=== PATIENT | male | born 1950 | race Caucasian/White ===

== ENCOUNTER 2016-11-20 19:28 | Emergency (ER) | payer MEDICAID ==
[2016-11-20 19:46] VITALS: BP 148/88; PULSE 78; RESP 16; TEMP 98.2; O2SAT 97
--- NOTE | 2016-11-20 20:07 | UCPHY ---
H & P Time Seen by Provider: 11/20/16 19:36 Patient Type: New HPI/ROS: This patient complains of pain to the neck extends to the right upper interscapular region and is positional. He describes the nature the pain as a deep ache and explains that he cannot extend his neck due to severe worsening the pain when he attempts to do so he has some relief of the pain when he flexes forward. There is associated intermittent right arm paresthesias. He has partial relief from [id number] anti-inflammatories such as ibuprofen and aspirin. He also feels some improvement when lying down compared to standing up. No other exacerbating or alleviating factors are noted. Current intensity with neck held in partial flexion is 5/10. ROS: No recent trauma. He reports having had similar episodes of pain the last 2 years prior to this year starting in September and he has had relief from massage therapy in previous years but had massage therapy dysuria without significant improvement and came in for evaluation. Over the past 2 days he reports associated waves of nausea with his pain. He also has mild anorexia. Neuro: No focal weakness. No bowel or bladder incontinence musculoskeletal: No low back pain : No urinary symptoms. GI: No belly pain. 10 point ROS is otherwise negative. Past Medical/Surgical History: Intermittent neck pain for the past 3 years Social History: No alcohol. No recreational drugs. Smoking Status: Never smoked Physical Exam: Physical Exam Vital signs are normal. General: No acute distress HEENT: Atraumatic. Eyes: Pupils equal and react to light. Extraocular motions are intact. Neck: Patient has midline tenderness at approximately C4. This extends into the right trapezius and the region just medial to the upper right scapula. He has limited range of motion in extension of the neck due to pain and is holding his neck in partial flexion due to this. Patient has some decrease in pain with lateral flexion away from the affected side Lungs: No respiratory distress. Cardiac: Brisk capillary refill is intact throughout. Pulses are 2+ and symmetric in the affected extremity. Skin: No rash or pallor. Neuro: He is alert and he maintains normal light touch sensation bilateral upper extremities and 5/5 strength bilateral upper extremities. He has diminished triceps reflex on the right side compared to the left otherwise DTRs are intact and brachioradialis, biceps, patellar and Achilles bilaterally. Initial differential diagnosis: Cervical radiculopathy from herniated disc, rule out bony lesion, spinal tumor, spinal abscess Constitutional: Initial Vital Signs Temperature (C) 36.8 C 11/20/16 19:42 Heart Rate 78 11/20/16 19:42 Respiratory Rate 16 11/20/16 19:42 Blood Pressure 148/88 H 11/20/16 19:42 O2 Sat (%) 97 11/20/16 19:42 O2 Delivery Mode Room Air Allergies/Adverse Reactions: Penicillins Allergy (Verified 06/22/12 13:56) Home Medications: Medication Instructions Recorded Aspirin 11/20/16 Hydrocodone/APAP 5/325 [[place] 1 - 2 tab PO Q4PRN PRN #15 tab 11/20/16 5/325 (*)] IBUPROFEN 11/20/16 Methocarbamol [Robaxin 750 mg (*)] 750 - 1,500 mg PO QID PRN #30 tab 11/20/16 Ondansetron Odt [Zofran Odt] 4 - 8 mg PO Q4PRN PRN #4 tab 11/20/16 predniSONE 60 mg PO DAILY #25 tab 11/20/16 MDM/Departure - MDM Diagnostics: Cervical x-rays: Loss of lordosis and multilevel degenerative disc disease by my interpretation. Medications Given: Discontinued Medications Ondansetron HCl (Zofran Odt) 8 mg PO EDNOW ONE Stop: 11/20/16 20:31 Last Admin: 11/20/16 20:37 Dose: 8 mg ED Course/Re-evaluation: Patient is given Zofran here for nausea. He will take prednisone analgesics at home after a drive home. Discussion: Patient here with neck pain that is consistent with cervical radiculopathy with paresthesias but no heart Neuro losses except perhaps a diminished triceps reflex on the right side. Counseled regarding this. He will follow up with Dae Guevara of Neurosurgery for further evaluation. He is given appropriate red flag warnings for reasons to go the emergency department - Depart Disposition: Home, Routine, Self-Care Clinical Impression: Cervical radiculopathy Condition: Good Instructions: Cervical Radiculopathy (ED) Additional Instructions: Diagnosis: Cervical radiculopathy Plan: Take prednisone when you get home and hydrocodone as needed for pain control. Continue prednisone in the mornings after breakfast. Did not take any other anti-inflammatory while on prednisone. After he finished prednisone, then he can start [id number] mg per 6 hours as needed. Methocarbamol muscle relaxant and Tylenol or Vicodin in addition as needed for pain. No driving, alcohol work on Vicodin or methocarbamol. Call Dr. Dae Guevara-neurosurgeon to arrange follow-up appointment for further evaluation. Go to the emergency department if he has any significant worsening despite the treatment plan. Prescriptions: Hydrocodone/APAP 5/325 [[place] 5/325 (*)] 1 - 2 tab PO Q4PRN PRN #15 tab PRN Reason: Pain Methocarbamol [Robaxin 750 mg (*)] 750 - 1,500 mg PO QID PRN #30 tab PRN Reason: Muscle Spasms Ondansetron Odt [Zofran Odt] 4 - 8 mg PO Q4PRN PRN #4 tab PRN Reason: Vomiting predniSONE 60 mg PO DAILY #25 tab Referrals: Blake Holloway DO [Primary Care Provider] - As per Instructions Kit Guevara MD [Medical Doctor] - As per Instructions - PQRS PQRS Measurement: 134: Depression screening and followup, PRIME MD-PHQ2 (12 years and older) Over the last 2 weeks, how often have you been bothered by any of the following problems? 1. Feeling down, depressed, or hopeless? 2. Little interest or pleasure in doing things? Patient answered yes to at least 1, referred to PCP for further evaluation. 130: Documentation of medications. Reviewed all patient medications, doses, route and frequency. 226: Do you smoke? [No.] 47: 65 and older: Advanced care planning. Patient designates surrogate decision maker as daughter, Celsa Almodovar 51: 18 years old and older with diagnosis of COPD, spirometry performance. NA 52: 18 years old and older with COPD and symptoms of COPD or FEV1<60% predicted prescribed a B Agonist. NA
[2016-11-20] MEDS ORDERED: ONDANSETRON DISINTEGRATING 4 MG TAB PO ONE (20:30)
[2016-11-20] MEDS ORDERED: OXYCODONE/APAP 5/325MG PREPACK#4 BTL TAKEHOME ONE (20:33)
[2016-11-20] MEDS ORDERED: predniSONE 20 MG TAB PO ONE (20:34)
[2016-11-20] MEDS ORDERED: HYDROCOD/APAP 5/325 PREPACK#6 BTL TAKEHOME ONE (20:36)
--- NOTE | 2016-11-20 21:37 | DX ---
Cervical Spine, Five Views History: Neck pain, with right arm paresthesias. No trauma. Findings: Straightening of the cervical alignment. No cervical compression fractures or spondylolis thesis. Moderate disk space narrowing at C3-C4, C4-C5, and C6-C7, with circumferential osteophytes. Mild bilateral facet arthropathy at most levels. Oblique views demonstrate moderate neural foramina l stenosis bilaterally at C4-C5 and C6-C7. Impressions 1. Moderate degenerative disk disease from C3-C4 through C6-C7 resulting in multilevel bilateral gwen ral foraminal stenosis on the oblique views. 2. Consider follow-up MRI imaging when the patient's medical condition permits.
== END 2016-11-20 20:50 | disposition home or self-care (01) ==
LOC: CED 19:28
DX: M54.12 Radiculopathy, cervical region (principal); M50.31 Other cervical disc degeneration, high cervical region; M50.323 Other cervical disc degeneration at C6-C7 level; M99.71 Connective tissue and disc stenosis of intervertebral foramina of cervical region
CPT/HCPCS: 72050-PO; G0463-PO

== ENCOUNTER 2016-11-21 02:02 | Emergency (ER) | payer MEDICAID ==
[2016-11-21 02:07] VITALS: RESP 16; O2SAT 94
--- NOTE | 2016-11-21 02:49 | EDPHY ---
[id number] 11/21/16 02:24 HPI/ROS: HPI The patient presents with insomnia which has been present for tonight. It has been constant. This is associated with mild burning epigastric pain which has been intermittent. He says he feels disassociated from his body". The patient was [place] [facility] [place]. He says he gets this pain about once per year and yesterday he was prescribed [place], NSAIDs, prednisone. He has taken all of these medications. His pain is actually feeling better REVIEW OF SYSTEMS Constitutional: No fever, no chills. Eyes: No discharge. ENT: No sore throat. Cardiovascular: No chest pain, no palpitations. Respiratory: No cough, no shortness of breath. Gastrointestinal: No abdominal pain, no vomiting. Genitourinary: No hematuria. Musculoskeletal: No back pain. Skin: No rashes. Neurological: No headache. PMHx: Cervical radiculopathy Soc Hx: Lives alone PHYSICAL General Appearance: Alert, no distress Eyes: Pupils equal and round no pallor or injection ENT, Mouth: Mucous membranes moist Neck: Tenderness in the right paraspinals in region of C5 through C7 and trapezius Respiratory: There are no retractions, lungs are clear to auscultation Cardiovascular: Regular rate and rhythm Gastrointestinal: Abdomen is soft and non-tender, no masses, bowel sounds normal Neurological: A&O, moves all extremities Skin: Warm and dry, no rashes Musculoskeletal: Neck is supple non tender Extremities: symmetrical, full range of motion Psychiatric: Patient is oriented X 3, there is no agitation Source: Patient Exam Limitations: No limitations - Personal History Current Tetanus/Diphtheria Vaccine: Unsure - Medical/Surgical History Hx Asthma: No Hx Chronic Respiratory Disease: No Hx Diabetes: No Hx Cardiac Disease: No Hx Renal Disease: No Hx Cirrhosis: No Hx Alcoholism: No Hx HIV/AIDS: No Hx Splenectomy or Spleen Trauma: No Other PMH: PSHx: lower back. PMHx: denies - Social History Smoking Status: Never smoked Constitutional: Initial Vital Signs Temperature (C) 36.5 C 11/21/16 02:04 Heart Rate 84 11/21/16 02:04 Respiratory Rate 16 11/21/16 02:04 Blood Pressure 142/83 H 11/21/16 02:04 O2 Sat (%) 94 11/21/16 02:04 O2 Delivery Mode Room Air Allergies/Adverse Reactions: Penicillins Allergy (Verified 06/22/12 13:56) Home Medications: Medication Instructions Recorded Aspirin 11/20/16 Hydrocodone/APAP 5/325 [[place] 1 - 2 tab PO Q4PRN PRN #15 tab 11/20/16 5/325 (*)] IBUPROFEN 11/20/16 Methocarbamol [Robaxin 750 mg (*)] 750 - 1,500 mg PO QID PRN #30 tab 11/20/16 Ondansetron Odt [Zofran Odt] 4 - 8 mg PO Q4PRN PRN #4 tab 11/20/16 predniSONE 60 mg PO DAILY #25 tab 11/20/16 Medical Decision Making Differential Diagnosis: This is a 65-year-old man who presents with insomnia after starting medication today for cervical radiculopathy. One of the medications as prednisone which I feel is likely causing the majority of his symptoms. He does also have some mild stomach pain with a nontender abdominal exam. This could be related to gastritis from anti-inflammatories versus prednisone. At this time, I have instructed him to stop taking the prednisone. I have told him that he can take melatonin as needed for insomnia. I have advised him to take his other pain medication with food and he can also use antacids as needed for abdominal pain. He is in agreement with this plan and will be discharged. Departure - Departure Disposition: Home, Routine, Self-Care Clinical Impression: Insomnia, Cervical radiculopathy, Stomach pain Condition: Good Instructions: Cervical Radiculopathy (ED), Insomnia (ED) Additional Instructions: You should stop taking the prednisone. I think this is causing your insomnia as well as some of your stomach pain. Please make sure to take her pain medications with food. You continue to have stomach pain, you can try something like Tums or Pepcid. Please return to the emergency room if your worse in any way. Referrals: [place],. [Primary Care Provider] - As per Instructions
[2016-11-21 03:17] VITALS: BP 143/80; PULSE 88; TEMP 98.4
== END 2016-11-21 03:17 | disposition home or self-care (01) ==
DX: G47.00 Insomnia, unspecified (principal); M54.12 Radiculopathy, cervical region; R10.9 Unspecified abdominal pain; Z79.82 Long term (current) use of aspirin